=== PATIENT | female | born 1980 | race Caucasian/White ===

== ENCOUNTER 2017-03-16 18:02 | Emergency (ER) | payer OTHER ==
[~2017-03-16] VITALS: Ht 162.6 cm; Wt 86.0 kg
[~2017-03-16 18:02] MED LIST: ALBUAER19 INH; CLON0.5T3 PO; LEVO150T9 PO; NICO14DI18 TD; OXYC-57 PO; PREG1CAP28 PO
[2017-03-16 18:07] VITALS: TEMP 36.4; Ht 162.6 cm; Wt 86.0 kg
[2017-03-16] MEDS ORDERED: AMOXICILLIN/CLAVULANATE TAB 875 MG TAB PO ONE (18:30)
[2017-03-16] MEDS ORDERED: AMOXICIL/CLAVU 875MG HOME PACK PO ONE (18:30)
--- NOTE | 2017-03-16 18:37 | DIAGNOSTIC IMAGING REPORT ---
RIGHT HAND 3 VIEWS HISTORY: Dog bite R hand COMPARISON: None. FINDINGS: There is no fracture or dislocation. Mild diffuse soft tissue swelling. No bony destruction to suggest osteomyelitis. No radiopaque foreign bodies. IMPRESSION: No fractures. Mild diffuse soft tissue swelling. Electronically signed by: Grant Santana M.D. 03/16/2017 6:35 PM Dictated Date/Time: 03/16/2017 6:34 PM
[2017-03-16] MEDS ORDERED: PRVHFAIN INH (18:54)
[2017-03-16] MEDS ORDERED: MONT1TAB3 PO (18:54)
[2017-03-16] MEDS ORDERED: FLUT1INH INH (18:54)
[2017-03-16] MEDS ORDERED: AMOX875T PO (19:25)
[2017-03-16] MEDS ORDERED: OXYCODONE IR HOME PACK PO ONE (19:45)
[2017-03-16 19:49] VITALS: BP 119/84; PULSE 85; O2SAT 97
[2017-03-16] MEDS ORDERED: TYLOTC500 PO (22:16)
[2017-03-16] MEDS ORDERED: IBUP-1277 PO (22:16)
--- NOTE | 2017-03-16 22:48 | EMERGENCY ROOM VISIT NOTE ---
History First contact with patient: 18:12 Chief Complaint: BITE Stated Complaint: DOG BITE History of Present Illness The patient is a 36 year old female who presents to the Emergency Room with complaints of persistent right hand pain, swelling and difficulty moving her fingers after sustaining a dog bite to her right hand a little less than 48 hours ago. The patient was attempting to separate 2 fighting dogs when she was bitten by her own dog. The dog is up-to-date on all of its immunizations. The patient's tetanus immunization is up-to-date. The patient has not noticed any redness or drainage from the wounds, and rates her discomfort a 6 out of 10. The patient is [id number]. The patient also denies any paresthesias or numbness of the hand or fingers, and denies any pain extending into the wrist or forearm region. Review of Systems 10 system review was performed and was negative except for pertinent positives and negatives as indicated in history of present illness Past Medical/Surgical History Medical Problems: (1) Acute bronchitis (2) Anxiety and depression (3) Bronchitis (4) Concussion (5) Contusion of left leg (6) Hypothyroidism (7) Multinodular goiter (nontoxic) (8) Neck strain Surgical Problems: (1) Cholecystectomy (2) History of thyroidectomy (3) S/P JUNIOR (total abdominal hysterectomy) Family History Diabetes mellitus FHx: cancer FHx: heart disease FHx: lung disease Hypertension Kidney disease Kidney stones Social History Smoking Status: Never Smoker Alcohol Use: none Marital Status: Housing Status: lives with family Occupation Status: unemployed Current/Historical Medications Scheduled Amoxicillin & Pot Clavulanate (Augmentin 875-125 mg), 1 TAB PO BID Fluticasone Furoate-Vilanterol (Breo Ellipta), 1 PUFF INH UD Levothyroxine Sodium (Levothyroxine Sodium), 150 MCG PO DAILY Montelukast Sodium (Singulair), 10 MG PO HS Scheduled PRN Acetaminophen (Tylenol), 1,000 MG PO Q6H PRN for Pain Albuterol (Ventolin Hfa), 2 PUFFS INH QID PRN for Shortness of Breath Ibuprofen (Advil), 400-800 MG PO Q6H PRN for Pain Physical Exam Vital Signs Date Time Temp Pulse Resp B/P (MAP) Pulse Ox O2 Delivery O2 Flow Rate FiO2 03/16/17 19:49 85 18 119/84 97 03/16/17 18:07 36.4 89 17 121/86 97 Room Air Physical Exam CONSTITUTIONAL: Healthy and well nourished. Alert and oriented X 3 with positive affect. She does not appear in any acute distress on exam. HEENT: Normocephalic, atraumatic. Pupils equal, round and reactive. NECK: Full active range of motion without discomfort. MUSCULOSKELETAL: Examination shows puncture wounds to the palm and dorsum of the right hand, mostly over the fourth metacarpal region. The patient has mild discomfort with attempted active range of motion of the third, fourth and fifth fingers. She has mild discomfort with passive range of motion of the same. She has no focal tenderness to palpation through the volar wrist or flexor tendons. There is no erythema about or purulent drainage from the wounds. Capillary refill of all fingers is less than 2 seconds. INTEGUMENTARY: No rash or other significant dermatologic conditions noted. NEUROLOGIC: Right hand and fingers are sensory intact. Medical Decision & Procedures ER Provider Diagnostic Interpretation: My interpretation of right hand x-rays does not show any obvious fractures, dislocations or radiopaque foreign bodies. Radiologist report is as follows: RIGHT HAND 3 VIEWS HISTORY: Dog bite R hand COMPARISON: None. FINDINGS: There is no fracture or dislocation. Mild diffuse soft tissue swelling. No bony destruction to suggest osteomyelitis. No radiopaque foreign bodies. IMPRESSION: No fractures. Mild diffuse soft tissue swelling. Medications Administered Medications (Trade) Dose Ordered Sig/Tamara Route Start Time Stop Time Status Last Admin Dose Admin Amoxicillin/ Clavulanate Potassium (Augmentin Tab) 875 mg NOW ONCE PO 03/16/17 18:30 03/16/17 18:31 DC 03/16/17 18:59 875 MG Amoxicillin/ Clavulanate Potassium (Augmentin 875MG Home Pack) 1 homepack UD ONCE PO 03/16/17 18:30 03/16/17 18:31 DC 03/16/17 18:59 1 HOMEPACK Oxycodone HCl (Roxicodone Immediate Rel 5MG Home Pack) 1 homepack UD ONCE PO 03/16/17 19:45 03/16/17 19:46 DC 03/16/17 19:51 1 HOMEPACK ED Course Patient history and physical exam were performed. Nurse's notes were reviewed. Vital signs were reviewed and were normal. The patient refused any initial analgesics. X-rays of the right hand were normal. The patient was administered Augmentin 875 mg in the emergency department, and was dispensed an Augmentin home pack. The patient was encouraged to keep the wounds clean and covered with an antibiotic ointment and dressing until they heal. Ice for swelling. Ibuprofen and Tylenol in alternating fashion as needed for pain. Review of the [place] Prescription Drug Monitoring Program shows that the patient was recently in pain management. She reports that she was fired because she did not have one of her prescribed medications in her system. The patient was advised that our policy is that she does not receive any prescription narcotics. She was provided a home pack of OxyIR 5 mg , and was instructed that she must discuss further pain management with her PCP or orthopedics. She was instructed to call her PCP for orthopedic referral. She was instructed to return to the emergency department immediately for any developing redness, worsening swelling or pain. Medical Decision [place] Drug Monitoring Program Search Results: patient reviewed within database, see additional documentation Medication Reconcilliation Current Medication List: was personally reviewed by me Blood Pressure Screening Patient's blood pressure: Normal blood pressure Impression Primary Impression: Dog bite of right hand Departure Information Prescriptions Amoxicillin & Pot Clavulanate (Augmentin 875-125 mg) 1 Tab Tab 1 TAB PO BID for 4 Days, #8 TAB Prov: Alberto Quinn PA 03/16/17 Referrals No Doctor, Assigned (PCP) Patient Instructions [facility] Problem Qualifiers Primary Impression: Dog bite of right hand Encounter type: initial encounter Qualified Codes: S61.451A - Open bite of right hand, initial encounter; W54.0XXA - Bitten by dog, initial encounter
== END 2017-03-16 19:49 | disposition home or self-care (01) ==
LOC: C.EDB 18:03 → C.EDD 19:49
DX: S61.451A Open bite of right hand, initial encounter (principal); W54.0XXA Bitten by dog, initial encounter; Y92.019 Unspecified place in single-family (private) house as the place of occurrence of the external cause; F41.9 Anxiety disorder, unspecified; F32.9 Major depressive disorder, single episode, unspecified; E03.9 Hypothyroidism, unspecified; Z83.3 Family history of diabetes mellitus; Z82.49 Family history of ischemic heart disease and other diseases of the circulatory system; Z83.6 Family history of other diseases of the respiratory system; Z80.9 Family history of malignant neoplasm, unspecified; Z84.1 Family history of disorders of kidney and ureter; Z79.899 Other long term (current) drug therapy